=== PATIENT | male | born 1960 | race American Indian/Alaskan Native ===

== ENCOUNTER 2019-09-22 11:07 | Emergency (ER) | payer BC ==
--- NOTE | 2019-09-22 12:28 | Event Note ---
ED Screening Note Date of service: 09/22/19 Time: 12:25 ED Screening Note: 59 y o m with hx of asthma presents with sob states eds not working This initial assessment/diagnostic orders/clinical plan/treatment(s) is/are subject to change based on patients health status, clinical progression and re- assessment by fellow clinical providers in the ED. Further treatment and workup at subsequent clinical providers discretion. Patient/guardian urged not to elope from the ED as their condition may be serious if not clinically assessed and managed. Initial orders include: cxr
[2019-09-22] MEDS ORDERED: ALBUTEROL 2.5 MG/3 ML NEBU IH ONE (13:59)
[2019-09-22] MEDS ORDERED: methylPREDNISolone Sod Succinate 125 MG/2 ML INJ IV ONE (13:59)
[2019-09-22] MEDS ORDERED: MAGNESIUM SULFATE 2 GM/50 ML BAG IV ONE (13:59)
--- NOTE | 2019-09-22 14:00 | Emergency Department Report ---
Minor Respiratory - HPI Chief Complaint: Dyspnea/Respdistress Stated Complaint: SOB Time Seen by Provider: 09/22/19 13:59 Duration: 5 Days Pain Location: Chest Severity: moderate Minor Respiratory: Yes Able to Tolerate Fluids, Yes Cough, No Rhinorrhea, No Sore Throat, No Ear Pain, No Sick Contacts, No Hemoptysis, No Chest Pain, No Shortness of Breath, No Fever Other History: Patient is a 59-year-old -[place] male who comes to the ER with asthma exacerbation. He states that he has had continuous wheezing for about the last week. He did see his primary care last week and started him on pro-air, nebulizer treatments, Singulair and azithromycin. However, he does not feel like he is getting any better. He has no fever but does endorse chills. ED Review of Systems ROS: Stated complaint: SOB Other details as noted in HPI Comment: All other systems reviewed and negative ED Past Medical Hx - Past Medical History Previous Medical History?: Yes Hx Asthma: Yes - Surgical History Past Surgical History?: No - Family History Family history: no significant - Social History Smoking Status: Never Smoker Substance Use Type: None - Medications Home Medications: Home Medications Medication Instructions Recorded Confirmed Last Taken Type predniSONE [Deltasone] 20 mg PO DAILY #5 tablet 09/22/19 Unknown Rx Minor Respiratory Exam - Exam General: Vital signs noted. No distress. Alert and acting appropriately. HEENT: Yes Moist Mucous Membranes, No Pharyngeal Erythema, No Pharyngeal Exudate s, No Rhinorrhea, No Conjuctival Injection, No Frontal Tenderness, No Maxillary Tenderness Ear: Neither TM Bulge, Neither TM Erythema, Neither EAC Pain, Neither EAC Discharge Neck: Yes Supple, No Adenopathy Lungs: Yes Good Air Exchange, Yes Wheezes, Yes Cough, No Ronchi, No Stridor, No Labored Respirations, No Retractions, No Use of Accessory Muscles, No Other Abnormal Lung Sounds Heart: Yes Regular, No Murmur Abdomen: Yes Normal Bowel Sounds, No Tenderness, No Peritoneal Signs Skin: No Rash, No Edema Neurologic: Alert and oriented, no deficits. Musculoskeletal: Unremarkable. ED Course Vital Signs 09/22/19 12:24 Temperature 98 F Pulse Rate 89 Respiratory 18 Rate Blood Pressure 152/89 O2 Sat by Pulse 99 Oximetry ED Medical Decision Making - Radiology Data Radiology results: report reviewed, image reviewed NAP - Medical Decision Making XRAY NEG NO FEVER NO TACHYCARDIA NO HYPOTENSION MEDICATED WITH NS/SOLUMEDROL/DUONEB/AZITHROM IV AND MG DC HOME WITH DC POC AND PCP FOLLOW UP IN 48 H VSS NAD ON EXAM Vital Signs 09/22/19 12:24 Temperature 98 F Pulse Rate 89 Respiratory 18 Rate Blood Pressure 152/89 O2 Sat by Pulse 99 Oximetry - Differential Diagnosis RO PNA/URTI Critical care attestation.: If time is entered above; I have spent that time in minutes in the direct care of this critically ill patient, excluding procedure time. ED Disposition Clinical Impression: Asthma exacerbation Disposition: DC-01 TO HOME OR SELFCARE Is pt being admited?: No Does the pt Need Aspirin: No Condition: Stable Instructions: Asthma (ED) Additional Instructions: continue home nebs proair singulair azithromycin STOP YOUR CURRENT PREDNISONE AND TAKE DOSE I'VE GIVEN YOU TODAY FOLLOW UP WITH PCP IN 8 H TO BE SURE YOU ARE GETTING BETTER STAY WELL HYDRATED WITH WATER Prescriptions: predniSONE [Deltasone] 20 mg PO DAILY #5 tablet Referrals: [facility] [Other] - 3-5 Days Time of Disposition: 14:27
[2019-09-22] MEDS ORDERED: SODIUM CHLORIDE 0.9% 1000 ML 1,000 ML IV ONE (14:01)
[2019-09-22] MEDS ORDERED: cefTRIAXone/NS 1 GM/50 ML 1 GM/50 ML BAG IV ONE (14:27)
--- NOTE | 2019-09-22 14:29 | XRay Report ---
CHEST 2 VIEWS INDICATION: sob. COMPARISON: 08/04/2015. FINDINGS: Support devices: None. Heart: Within normal limits. Lungs/Pleura: No acute air space or interstitial disease. No significant pleural effusion. IMPRESSION: No acute findings. Signer Name: Miguel Angel Lassiter MD Signed: 09/22/2019 2:24 PM Workstation Name: [id number]
[2019-09-22 17:06] VITALS: BP 158/88
== END 2019-09-22 17:08 | disposition home or self-care (01) ==
LOC: ED 11:07
DX: J45.901 Unspecified asthma with (acute) exacerbation (principal); Z79.899 Other long term (current) drug therapy
CPT/HCPCS: 71046; 94640; 96365; 96368; 96375; 99283; J0696; J2930; J3475; J7030; 99282

== ENCOUNTER 2019-09-30 22:58 | Emergency (ER) | payer BC ==
[2019-09-30 23:13] VITALS: BP 145/86
[2019-09-30] MEDS ORDERED: IPRATROPIUM 0.02% NEBU 2.5 ML IH ONE (23:31)
[2019-09-30] MEDS ORDERED: ALBUTEROL 2.5 MG/3 ML NEBU IH ONE (23:31)
[2019-10-01] MEDS ORDERED: IPRATROPIUM/ALBUTEROL SULFATE 3 ML AMPUL.NEB IH ONE (00:19)
[2019-10-01] MEDS ORDERED: MAGNESIUM SULFATE 2 GM/50 ML BAG IV ONE (00:19)
[2019-10-01] MEDS ORDERED: ALBUTEROL 2.5 MG/3 ML NEBU IH ONE (00:19)
[2019-10-01] MEDS ORDERED: methylPREDNISolone Sod Succinate 125 MG/2 ML INJ IV ONE (00:20)
[2019-10-01] MEDS ORDERED: SODIUM CHLORIDE 0.9% 1000 ML 1,000 ML IV ONE (00:20)
[2019-10-01 01:17] LABS: Hematocrit 45.8 % (35.5-45.6); Hemoglobin 15.2 gm/dl (11.8-15.2); Mean Corpuscular HGB Conc 33 % (32-34); Mean Corpuscular Volume 86 fl (84-94); Platelet Count 148 K/mm3 (140-440); Red Blood Count 5.36 M/mm3 (3.65-5.03); Red Cell Distribution Width 14.7 % (13.2-15.2)
[2019-10-01 01:47] LABS: Alanine Aminotransferase 38 units/L (7-56); Albumin 4.1 g/dL (3.9-5); BUN/Creatinine Ratio 18; Blood Urea Nitrogen 21 mg/dL (9-20); Calcium 9.5 mg/dL (8.4-10.2); Hemolysis Index 16
--- NOTE | 2019-10-01 03:38 | Emergency Department Report ---
- General Chief Complaint: Adult Asthma Stated Complaint: SOB Source: patient Mode of arrival: Ambulatory Limitations: No Limitations - History of Present Illness Initial Comments: Patient is a 59-year-old -[place] male with a history of asthma who presented to the ED with complaint of acute onset persistent nasal and sinus congestion, dry cough with wheezing and shortness of breath for the last 1 week worse in the last 2 days. Patient states that he has been using his albuterol nebulizer and inhalers as needed, and more frequently in the last 2 days. Patient denies fever, chills, nausea, vomiting, chest pain, dizziness, syncope, abdominal pain, sore throat, dysuria, urinary frequency and urgency, diarrhea, headache or change in vision. MD Complaint: cough, rhinorrhea, nasal congestion, other (shortness of breath) -: Sudden, week(s) (1) Severity: moderate Severity scale (0 -10): 6 Quality: dull Consistency: intermittent Improves With: nothing Worsens With: nothing Context: sick contacts Associated Symptoms: denies other symptoms, rhinorrhea, nasal congestion, cough, shortness of breath. denies: fever, myalgias, diaphoresis, headache, nausea, vomiting, diarrhea, confusion, right sweats, epistaxis Treatments Prior to Arrival: other (albuterol nebulizers) - Related Data Previous Rx's Medication Instructions Recorded Last Taken Type predniSONE [Deltasone] 20 mg PO DAILY #5 tablet 09/22/19 Unknown Rx Amoxicillin/Potassium Clav 1 each PO Q12H #20 tablet 10/01/19 Unknown Rx [Augmentin 875-125 Tablet] Benzonatate [Tessalon Perles] 100 mg PO Q8HR #30 capsule 10/01/19 Unknown Rx Prednisone [predniSONE 10 mg 10 mg PO .TAPER #21 tab.ds.pk 10/01/19 Unknown Rx (6-Day Pack, 21 Tabs)] Allergies Allergy/AdvReac Type Severity Reaction Status Date / Time No Known Allergies Allergy Verified 08/04/15 05:41 ED Review of Systems ROS: Stated complaint: SOB Other details as noted in HPI Constitutional: denies: chills, fever Eyes: denies: eye pain, eye discharge, vision change ENT: congestion. denies: ear pain, throat pain Respiratory: cough, shortness of breath, wheezing Cardiovascular: denies: chest pain, palpitations Endocrine: no symptoms reported Gastrointestinal: denies: abdominal pain, nausea, diarrhea Genitourinary: denies: urgency, dysuria Musculoskeletal: denies: back pain, joint swelling, arthralgia Skin: denies: rash, lesions Neurological: denies: headache, weakness, paresthesias Psychiatric: denies: anxiety, depression Hematological/Lymphatic: denies: easy bleeding, easy bruising ED Past Medical Hx - Past Medical History Previous Medical History?: Yes Hx Asthma: Yes - Surgical History Past Surgical History?: No - Social History Smoking Status: Never Smoker Substance Use Type: None, Marijuana - Medications Home Medications: Home Medications Medication Instructions Recorded Confirmed Last Taken Type predniSONE [Deltasone] 20 mg PO DAILY #5 tablet 09/22/19 Unknown Rx Amoxicillin/Potassium Clav 1 each PO Q12H #20 tablet 10/01/19 Unknown Rx [Augmentin 875-125 Tablet] Benzonatate [Tessalon Perles] 100 mg PO Q8HR #30 capsule 10/01/19 Unknown Rx Prednisone [predniSONE 10 mg 10 mg PO .TAPER #21 tab.ds.pk 10/01/19 Unknown Rx (6-Day Pack, 21 Tabs)] ED Physical Exam - General Limitations: No Limitations General appearance: alert, in no apparent distress - Head Head exam: Present: atraumatic, normocephalic, normal inspection - Eye Eye exam: Present: normal appearance, PERRL, EOMI Pupils: Present: normal accommodation - ENT ENT exam: Present: normal orophraynx, mucous membranes moist, TM's normal bilaterally, normal external ear exam, other (Grossly congested nasal passages) - Neck Neck exam: Present: normal inspection, full ROM. Absent: tenderness, meningismus - Respiratory Respiratory exam: Present: wheezes (Moderately because wheezes throughout). Absent: respiratory distress, rales, rhonchi, chest wall tenderness, accessory muscle use, decreased breath sounds - Cardiovascular Cardiovascular Exam: Present: regular rate, normal rhythm, normal heart sounds. Absent: systolic murmur, diastolic murmur, rubs, gallop - GI/Abdominal GI/Abdominal exam: Present: soft, normal bowel sounds. Absent: distended, tenderness, guarding, hyperactive bowel sounds - Extremities Exam Extremities exam: Present: normal inspection, full ROM, normal capillary refill - Back Exam Back exam: Present: normal inspection, full ROM. Absent: tenderness, CVA tenderness (L), muscle spasm, paraspinal tenderness - Neurological Exam Neurological exam: Present: alert, oriented X3, CN II-XII intact, normal gait, reflexes normal - Psychiatric Psychiatric exam: Present: normal affect, normal mood - Skin Skin exam: Present: warm, dry, intact, normal color. Absent: rash ED Course Vital Signs 09/30/19 09/30/19 23:11 23:40 Temperature 98.6 F Pulse Rate 97 H Pulse Rate [ 100 H Bilateral Throughout] Respiratory 20 Rate Respiratory 20 Rate [Bilateral Throughout] Blood Pressure 145/86 O2 Sat by Pulse 90 Oximetry ED Medical Decision Making - Lab Data Result diagrams: 10/01/19 00:48 10/01/19 00:48 - Radiology Data Radiology results: report reviewed, image reviewed Chest x-ray shows no acute cardiopulmonary abnormalities or pneumonitis. - Medical Decision Making This is a 59-year-old male with a history of asthma who presented to the ED with persistent shortness of breath, wheezing, dry cough, nasal and sinus congestion. In the ED, patient is alert and oriented x3 and is not in distress. Patient was treated in the ED with DuoNeb, albuterol nebulizers and also given Solu- Medrol injections. Patient was also treated with magnesium 2 mg IV x1 and observed in the ED. Lab test results were reviewed and are all nonactionable. Chest x-ray shows no acute cardiopulmonary abnormalities or pneumonitis. On reevaluation, patient's wheezing resolved patient felt better after the nebulizer treatments. Patient was discharged home on medications and advised to follow-up with his primary care physician in 5 to 7 days for reevaluation or return to the ED immediately if symptoms get worse. - Differential Diagnosis asthma; pneumonia; bronchitis; sinusitis; URI Critical care attestation.: If time is entered above; I have spent that time in minutes in the direct care of this critically ill patient, excluding procedure time. ED Disposition Clinical Impression: Acute bronchitis with asthma with acute exacerbation, Acute upper respiratory infection Acute asthma exacerbation Qualifiers: Asthma severity: unspecified severity Asthma persistence: intermittent Qualified Code(s): J45.21 - Mild intermittent asthma with (acute) exacerbation Disposition: - TO HOME OR SELFCARE Is pt being admited?: No Does the pt Need Aspirin: No Condition: Stable Instructions: Acute Bronchitis (ED), Asthma (ED), Upper Respiratory Infection (ED) Additional Instructions: Take medication with food, drink plenty of fluids and follow-up with your primary care physician in 5 to 7 days for reevaluation. Return to the ED immediately if symptoms get worse. Prescriptions: Amoxicillin/Potassium Clav [Augmentin 875-125 Tablet] 1 each PO Q12H #20 tablet Prednisone [predniSONE 10 mg (6-Day Pack, 21 Tabs)] 10 mg PO .TAPER #21 tab.ds.pk Benzonatate [Tessalon Perles] 100 mg PO Q8HR #30 capsule Referrals: HAYLEY BASILIO MD [Staff Physician] - 3-5 Days Forms: Work/School Release Form(ED) Time of Disposition: 03:39 Print Language: LUXEMBOURGISH
[2019-10-01 05:01] LABS: Anisocytosis 1+; Band Neutrophils # (Manual) 0.1 K/mm3; Basophils % (Manual) 0 % (0.0-1.8); Total Cells Counted 100
[2019-10-01 05:02] LABS: Platelet Estimate Consistent w Auto
== END 2019-10-01 04:00 | disposition home or self-care (01) ==
LOC: ED 22:58
DX: J45.901 Unspecified asthma with (acute) exacerbation (principal); J20.9 Acute bronchitis, unspecified; J06.9 Acute upper respiratory infection, unspecified; F12.10 Cannabis abuse, uncomplicated
CPT/HCPCS: 36415; 80053; 84484; 85007; 85025; 94640; 96365; 96375; 99284; J2930; J3475; J7030; 94644

== ENCOUNTER 2019-12-23 05:00 | Emergency (ER) | payer BC ==
--- NOTE | 2019-12-23 05:27 | Emergency Department Report ---
ED Shortness of Breath HPI - General Chief Complaint: Dyspnea/Respdistress Stated Complaint: SHORTNESS OF BREATH Time Seen by Provider: 12/23/19 05:19 Source: patient Mode of arrival: Ambulatory Limitations: No Limitations - History of Present Illness Initial Comments: 59-year-old -Citizen Of [place] male presents to the emergency room for shortness of breath x2 days. Patient denies any other symptoms. Patient has a past medical history of asthma. Patient also reports he has bilateral feet swelling for weeks. Patient complains of coughing a lot and wheezing. Patient denies any fever no nasal congestion or runny eyes. Patient states his been using it is Margaret his nebulizer and took 10 mg of prednisone prior to arrival. Patient reports is not been able to see his primary care provider Dr. Deras. Patient reports that he has a prescription for Lasix but did not take it. This was prescribed by his mineral surveyor. MD Complaint: shortness of breath Onset/Timin -: days(s) Consistency: intermittent Improves With: nothing Worsens With: lying flat Known History Of: asthma Associated Symptoms: cough, other (Lower leg swelling) Treatments Prior to Arrival: other (Albuterol treatment and prednisone) - Related Data Home Oxygen Therapy: No Previous Rx's Medication Instructions Recorded Last Taken Type predniSONE [Deltasone] 20 mg PO DAILY #5 tablet 09/22/19 Unknown Rx Amoxicillin/Potassium Clav 1 each PO Q12H #20 tablet 10/01/19 Unknown Rx [Augmentin 875-125 Tablet] Benzonatate [Tessalon Perles] 100 mg PO Q8HR #30 capsule 10/01/19 Unknown Rx Prednisone [predniSONE 10 mg 10 mg PO .TAPER #21 tab.ds.pk 10/01/19 Unknown Rx (6-Day Pack, 21 Tabs)] predniSONE [Deltasone] 20 mg PO QDAY 5 Days #5 tab 12/23/19 Unknown Rx Allergies Allergy/AdvReac Type Severity Reaction Status Date / Time No Known Allergies Allergy Verified 08/04/15 05:41 ED Review of Systems ROS: Stated complaint: SHORTNESS OF BREATH Other details as noted in HPI Comment: All other systems reviewed and negative ED Past Medical Hx - Past Medical History Previous Medical History?: Yes Hx Asthma: Yes - Surgical History Past Surgical History?: No - Social History Smoking Status: Never Smoker Substance Use Type: None - Medications Home Medications: Home Medications Medication Instructions Recorded Confirmed Last Taken Type predniSONE [Deltasone] 20 mg PO DAILY #5 tablet 09/22/19 Unknown Rx Amoxicillin/Potassium Clav 1 each PO Q12H #20 tablet 10/01/19 Unknown Rx [Augmentin 875-125 Tablet] Benzonatate [Tessalon Perles] 100 mg PO Q8HR #30 capsule 10/01/19 Unknown Rx Prednisone [predniSONE 10 mg 10 mg PO .TAPER #21 tab.ds.pk 10/01/19 Unknown Rx (6-Day Pack, 21 Tabs)] predniSONE [Deltasone] 20 mg PO QDAY 5 Days #5 tab 12/23/19 Unknown Rx ED Physical Exam - General Limitations: No Limitations General appearance: alert, in no apparent distress - Head Head exam: Present: atraumatic, normocephalic - ENT ENT exam: Present: mucous membranes moist - Respiratory Respiratory exam: Present: wheezes, prolonged expiratory - Cardiovascular Cardiovascular Exam: Present: regular rate, normal rhythm. Absent: systolic murmur, diastolic murmur, rubs, gallop - GI/Abdominal GI/Abdominal exam: Present: soft. Absent: distended, tenderness - Extremities Exam Extremities exam: Present: full ROM, pedal edema - Back Exam Back exam: Present: normal inspection - Neurological Exam Neurological exam: Present: alert, oriented X3 - Psychiatric Psychiatric exam: Present: normal affect, normal mood - Skin Skin exam: Present: warm, dry, intact, normal color. Absent: rash ED Course Vital Signs 12/23/19 12/23/19 05:03 06:10 Temperature 98.4 F Pulse Rate 77 Pulse Rate [ 80 Bilateral] Respiratory 18 Rate Respiratory 20 Rate [Bilateral ] Blood Pressure 140/99 O2 Sat by Pulse 95 Oximetry - Reevaluation(s) Reevaluation #1: 12/23/19 07:09 Patient continues to wheeze. Patient be given another nebulizer treatment of albuterol. ED Medical Decision Making - Radiology Data Radiology results: report reviewed Print Report Referring Physician:MIKE TURCIOSPatient Name:CAROLINE FELICIANOPatient ID:[id number] of :[id number]:MaleAccession:[id number] Date:[id number] Status:Finalized Findings [facility] [address] [place] [address] XRay Report Signed Patient: CAROLINE FELICIANO MR#: [id number] : 1960 Acct:[id number] Age/Sex: 59 / M ADM Date: 12/23/19 Loc: ED Attending Dr: Ordering Physician: QUIN HOOKER Date of Service: 12/23/19 Procedure(s): XR chest routine 2V Accession Number(s): [id number] cc: QUIN HOOKER Fluoro Time In Minutes: CHEST 2 VIEWS, 12/23/2019 4:37 AM INDICATION: Cough. Shortness of breath. COMPARISON: Chest radiograph, 09/22/2019 FINDINGS: Support devices: None. Heart: The cardiac silhouette is normal in size. Lungs/pleura: The lungs are clear of focal airspace consolidation or significant pleural effusion. Additional findings: Evaluation of bony structures demonstrate moderate bony degenerative changes of the thoracic spine. IMPRESSION: 1. No evidence of acute cardiopulmonary process. Signer Name: Diamante Hazel MD Signed: 12/23/2019 5:41 AM Workstation Name: [id number] Transcribed By: EB Dictated By: Diamante Hazel MD Electronically Authenticated By: Diamante Hazel MD Signed Date/Time: 12/23/19 0541 - Medical Decision Making 59-year-old -Citizen Of [place] male presents to the emergency room for shortness of breath x2 days. Patient denies any other symptoms. Patient has a past medical history of asthma. Patient also reports he has bilateral feet swelling for weeks. Patient complains of coughing a lot and wheezing. Patient denies any fever no nasal congestion or runny eyes. Patient states his been using it is Margaret his nebulizer and took 10 mg of prednisone prior to arrival. Patient reports is not been able to see his primary care provider Dr. Deras. Patient reports that he has a prescription for Lasix but did not take it. This was prescribed by his mineral surveyor. Checks x-ray has been ordered. IV insertion normal saline, magnesium 2 mg IV, albuterol inhalation 5 mg Atrovent 1 mg and prednisone 50 mg p.o. - Differential Diagnosis CHF, asthma exacerbation, URI Critical care attestation.: If time is entered above; I have spent that time in minutes in the direct care of this critically ill patient, excluding procedure time. ED Disposition Clinical Impression: Dyspnea Qualifiers: Dyspnea type: unspecified Qualified Code(s): R06.00 - Dyspnea, unspecified Asthma exacerbation Qualifiers: Asthma severity: mild Asthma persistence: intermittent Qualified Code(s): J45.21 - Mild intermittent asthma with (acute) exacerbation Disposition: TO HOME OR SELFCARE Is pt being admited?: No Does the pt Need Aspirin: No Condition: Stable Additional Instructions: Complete prednisone as prescribed. Continue with nebulizer treatments at home. Prescriptions: predniSONE [Deltasone] 20 mg PO QDAY 5 Days #5 tab Referrals: PRIMARY CARE,MD [Primary Care Provider] - 3-5 Days Your, primary care provider. [Other] - 3-5 Days
[2019-12-23] MEDS ORDERED: predniSONE 50 MG TAB PO ONE (05:29)
[2019-12-23] MEDS ORDERED: IPRATROPIUM 0.02% NEBU 2.5 ML IH ONE (05:30)
[2019-12-23] MEDS ORDERED: ALBUTEROL 2.5 MG/3 ML NEBU IH ONE ×2 (05:30→07:06)
[2019-12-23] MEDS ORDERED: MAGNESIUM SULFATE 2 GM/50 ML BAG IV ONE (05:33)
[2019-12-23] MEDS ORDERED: SODIUM CHLORIDE 0.9% 1000 ML 1,000 ML IV ONE (05:33)
--- NOTE | 2019-12-23 05:46 | XRay Report ---
CHEST 2 VIEWS, 12/23/2019 4:37 AM INDICATION: Cough. Shortness of breath. COMPARISON: Chest radiograph, 09/22/2019 FINDINGS: Support devices: None. Heart: The cardiac silhouette is normal in size. Lungs/pleura: The lungs are clear of focal airspace consolidation or significant pleural effusion. Additional findings: Evaluation of bony structures demonstrate moderate bony degenerative changes of the thoracic spine. IMPRESSION: 1. No evidence of acute cardiopulmonary process. Signer Name: Diamante Hazel MD Signed: 12/23/2019 5:41 AM Workstation Name: [id number]
[2019-12-23 09:59] VITALS: BP 148/90
== END 2019-12-23 09:58 | disposition home or self-care (01) ==
LOC: ED 05:00
DX: J45.901 Unspecified asthma with (acute) exacerbation (principal)
CPT/HCPCS: 71046; 94640; 96365; 99284; J3475; J7030; J7512; 94644

== ENCOUNTER 2020-09-03 22:40 | Emergency (ER) | payer BC ==
--- NOTE | 2020-09-03 23:23 | Emergency Department Report ---
Blank Doc - Documentation Documentation: 60-year-old male that presents with abdominal pain with bright red blood in [facility]. Patient dated the started today. 1- This initial assessment/diagnostic orders/clinical plan/ treatment(s) is/are subject to change based on pt's health status, clinical progression and re-asses sment by fellow clinical providers in the ED. Further treatment and workup at subsequent clinical provers discretion. Patient/guardians urged not to elope from ED as their condition may be serious if not clinically assessed and managed. 2-labs 3--UA
[2020-09-03 23:54] LABS: Basophils % (Auto) 0.6 % (0.0-1.8); Eosinophils # (Auto) 0.4 K/mm3 (0.0-0.4); Eosinophils % (Auto) 9.4 % (0.0-4.3); Hematocrit 47.1 % (35.5-45.6); Hemoglobin 15.8 gm/dl (11.8-15.2); Lymphocytes # (Auto) 1.3 K/mm3 (1.2-5.4); Lymphocytes % (Auto) 27.8 % (13.4-35.0); Mean Corpuscular HGB Conc 34 % (32-34); Mean Corpuscular Volume 85 fl (84-94); Monocytes # (Auto) 0.5 K/mm3 (0.0-0.8); Platelet Count 155 K/mm3 (140-440); Red Blood Count 5.54 M/mm3 (3.65-5.03); Red Cell Distribution Width 13.4 % (13.2-15.2)
[2020-09-04 00:09] LABS: Alanine Aminotransferase 34 units/L (7-56); Albumin 4.6 g/dL (3.9-5); BUN/Creatinine Ratio 16; Blood Urea Nitrogen 16 mg/dL (9-20); Calcium 9.4 mg/dL (8.4-10.2); Hemolysis Index 9
--- NOTE | 2020-09-04 01:55 | Emergency Department Report ---
HPI - HPI HPI: Room 40 The patient is a 60-year-old male present with a chief complaint of blood in stool. Patient presents the emergency department secondary to noticing blood in his stool today. Patient states he developed intermittent diffuse abdominal pain last night. The patient attributes his symptoms to his believe that his employer bugged his home in place a high-frequency radial booster around his windowsill. The patient states he spoke with the police and the FBI and they told him to take care of it himself. The patient initially states he had a picture of the device but when he showed me his phone it was just a video of him waving a device around the windowsill. The patient then states he did not take a picture of the device. Patient denies having a psychiatric history. Patient denies suicidal or homicidal ideation. Patient denies auditory or visual hallucinations. The patient denies headache. <ROBERT JERNIGNA - Last Filed: 09/04/20 06:01> <CHUYITA DSOUZA - Last Filed: 09/04/20 10:04> - General Chief Complaint: GI Bleed Time Seen by Provider: 09/03/20 23:22 ED Past Medical Hx - Past Medical History Previous Medical History?: Yes Hx Asthma: Yes - Surgical History Past Surgical History?: No - Family History Family history: no significant - Social History Smoking Status: Never Smoker Substance Use Type: None (Denies illicit drug use) <ROBERT JERNIGAN - Last Filed: 09/04/20 06:01> <CHUYITA DSOUZA - Last Filed: 09/04/20 10:04> - Medications Home Medications: Home Medications Medication Instructions Recorded Confirmed Last Taken Type predniSONE [Deltasone] 20 mg PO DAILY #5 tablet 09/22/19 Unknown Rx Amoxicillin/Potassium Clav 1 each PO Q12H #20 tablet 10/01/19 Unknown Rx [Augmentin 875-125 Tablet] Benzonatate [Tessalon Perles] 100 mg PO Q8HR #30 capsule 10/01/19 Unknown Rx Prednisone [predniSONE 10 mg 10 mg PO .TAPER #21 tab.ds.pk 10/01/19 Unknown Rx (6-Day Pack, 21 Tabs)] predniSONE [Deltasone] 20 mg PO QDAY 5 Days #5 tab 12/23/19 Unknown Rx ED Review of Systems ROS: Stated complaint: BLOODY STOOL Other details as noted in HPI Constitutional: no symptoms reported Eyes: denies: eye pain ENT: denies: throat pain Respiratory: no symptoms reported Cardiovascular: denies: chest pain Endocrine: no symptoms reported Gastrointestinal: abdominal pain, hematochezia Genitourinary: denies: dysuria Musculoskeletal: denies: back pain Neurological: denies: headache Psychiatric: other (Delusions) <ROBERT JERNIGAN Jossie - Last Filed: 09/04/20 06:01> ROS: Stated complaint: BLOODY STOOL Other details as noted in HPI <CHUYITA DSOUZA Mele - Last Filed: 09/04/20 10:04> Physical Exam - Physical Exam Physical Exam: GENERAL: The patient is well-developed well-nourished male lying on stretcher not appearing to be in acute distress. [] HEENT: Normocephalic. Atraumatic. Extraocular motions are intact. Patient has moist mucous membranes. NECK: Supple. No meningitic signs are noted. There is no nuchal rigidity CHEST/LUNGS: Clear to auscultation. There is no respiratory distress noted. HEART/CARDIOVASCULAR: Regular. There is no tachycardia. There is no gallop rub or murmur. ABDOMEN: Abdomen is soft, nontender. Patient has normal bowel sounds. There is no abdominal distention. SKIN: There is no rash. There is no edema. There is no diaphoresis. NEURO: The patient is awake, alert, and oriented. The patient is cooperative. The patient has no focal neurologic deficits. The patient has normal speech. Cranial nerves II through XII grossly intact. GCS 15 MUSCULOSKELETAL: There is no evidence of acute injury. <ROBERT JERNIGAN Jossie - Last Filed: 09/04/20 06:01> - Physical Exam Vital Signs: Vital Signs 09/03/20 09/04/20 09/04/20 23:26 00:24 01:46 Temperature 99.2 F Pulse Rate 90 50 L Respiratory 17 17 18 Rate Blood Pressure 147/95 Blood Pressure 136/78 [Right] O2 Sat by Pulse 96 99 Oximetry 09/04/20 09/04/20 09/04/20 02:37 03:00 03:30 Temperature Pulse Rate 76 57 L 52 L Respiratory 16 16 Rate Blood Pressure 117/72 116/75 121/77 Blood Pressure [Right] O2 Sat by Pulse 97 98 99 Oximetry 09/04/20 09/04/20 09/04/20 04:30 05:30 06:30 Temperature Pulse Rate 47 L 48 L 60 Respiratory 15 16 14 Rate Blood Pressure 119/73 117/73 119/73 Blood Pressure [Right] O2 Sat by Pulse 100 99 100 Oximetry 09/04/20 09/04/20 09/04/20 07:00 07:30 08:00 Temperature Pulse Rate 51 L 46 L 51 L Respiratory 19 15 14 Rate Blood Pressure 119/73 126/71 126/71 Blood Pressure [Right] O2 Sat by Pulse 97 99 99 Oximetry 09/04/20 08:30 Temperature Pulse Rate 46 L Respiratory 15 Rate Blood Pressure 126/71 Blood Pressure [Right] O2 Sat by Pulse 99 Oximetry <CHUYITA DSOUZA Last Filed: 09/04/20 10:04> ED Course Vital Signs 09/03/20 09/04/20 09/04/20 23:26 00:24 01:46 Temperature 99.2 F Pulse Rate 90 50 L Respiratory 17 17 18 Rate Blood Pressure 147/95 Blood Pressure 136/78 [Right] O2 Sat by Pulse 96 99 Oximetry 09/04/20 09/04/20 09/04/20 02:37 03:00 03:30 Temperature Pulse Rate 76 57 L 52 L Respiratory 16 16 Rate Blood Pressure 117/72 116/75 121/77 Blood Pressure [Right] O2 Sat by Pulse 97 98 99 Oximetry 09/04/20 09/04/20 09/04/20 04:30 05:30 06:30 Temperature Pulse Rate 47 L 48 L 60 Respiratory 15 16 14 Rate Blood Pressure 119/73 117/73 119/73 Blood Pressure [Right] O2 Sat by Pulse 100 99 100 Oximetry 09/04/20 09/04/20 09/04/20 07:00 07:30 08:00 Temperature Pulse Rate 51 L 46 L 51 L Respiratory 19 15 14 Rate Blood Pressure 119/73 126/71 126/71 Blood Pressure [Right] O2 Sat by Pulse 97 99 99 Oximetry 09/04/20 08:30 Temperature Pulse Rate 46 L Respiratory 15 Rate Blood Pressure 126/71 Blood Pressure [Right] O2 Sat by Pulse 99 Oximetry <CHUYITA DSOUZA Filed: 09/04/20 10:04> ED Medical Decision Making - Lab Data Result diagrams: 09/03/20 23:30 09/03/20 23:30 - Radiology Data Radiology results: report reviewed (CT head, CT abdomen pelvis), image reviewed (CT head, CT abdomen pelvis) [address] [address] Cat Scan Report Signed Patient: CAROLINE FELICIANO MR#: Preethi [id number] : 1960 Acct:[id number] Age/Sex: 60 / M ADM Date: 09/03/20 Loc: ED Attending Dr: Ordering Physician: ROBERT JERNIGAN MD Date of Service: 09/04/20 Procedure(s): CT head/brain wo con Accession Number(s): [id number] cc: ROBERT JERNIGAN MD CT HEAD WITHOUT CONTRAST INDICATION / CLINICAL INFORMATION: New onset delusions. TECHNIQUE: All CT scans at this location are performed using CT dose reduction for ALARA by means of automated exposure control. COMPARISON: None available. FINDINGS: HEMORRHAGE: None. EXTRA-AXIAL SPACES: Normal in size and morphology for the patient's age. VENTRICULAR SYSTEM: Normal in size and morphology for the patient's age. CEREBRAL PARENCHYMA: No significant abnormality. No acute territorial infarct. MIDLINE SHIFT / HERNIATION: None. CEREBELLUM / BRAINSTEM: No significant abnormality. ORBITS: Normal as visualized. SOFT TISSUES: No significant abnormality. SKULL: No significant abnormality. PARANASAL SINUSES / MASTOID AIR CELLS: Normal as visualized. ADDITIONAL FINDINGS: None. IMPRESSION: 1. No acute intracranial abnormality. Signer Name: Donta Lopes MD Signed: 09/04/2020 2:55 AM Workstation Name: [id number] Transcribed By: DT Dictated By: Yan Lopes MD Electronically Authenticated By: Yan Lopes MD Signed Date/Time: 09/04/20 025 DD/ 025 TD/TT: [address] [address] Cat Scan Report Signed Patient: CAROLINE FELICIANO MR#: [id number] : 1960 Acct:[id number] Age/Sex: 60 / M ADM Date: 09/03/20 Loc: ED Attending Dr: Ordering Physician: ROBERT JERNIGAN MD Date of Service: 09/04/20 Procedure(s): CT abdomen pelvis w con Accession Number(s): [id number] cc: ROBERT JERNIGAN MD CT ABDOMEN AND PELVIS WITH CONTRAST INDICATION / CLINICAL INFORMATION: Blood in stool, intermittent diffuse abdominal pain. TECHNIQUE: Axial CT images were obtained through the abdomen and pelvis after 100 mL Omnipaque [address] scans at this location are performed using CT dose reduction for ALARA by means of automated exposure control. COMPARISON: None available. FINDINGS: LOWER CHEST: No significant abnormality. LIVER: No significant abnor mality. GALLBLADDER: No significant abnormality. BILE DUCTS: No significant abnormality. PANCREAS: No significant abnormality. SPLEEN: No significant abnormality. ADRENALS: No significant abnormality. RIGHT KIDNEY / URETER: No significant abnormality. LEFT KIDNEY / URETER: Small simple appearing cysts. Small nonobstructing stone in the upper pole. No significant abnormality. STOMACH / SMALL BOWEL: No significant abnormality. COLON: No significant abnormality. APPENDIX: No significant abnormality. PERITONEUM: No free fluid. No free air. No fluid collection. LYMPH NODES: No significant adenopathy. AORTA / ARTERIES: No significant abnormality. IVC / VEINS: No significant abnormality. URINARY BLADDER: No significant abnormality. REPRODUCTIVE ORGANS: No significant abnormality. ADDITIONAL FINDINGS: None. SKELETAL SYSTEM: No significant abnormality. IMPRESSION: 1. No acute process in the abdomen or pelvis. 2. Small nonobstructing left intrarenal stone. No ureteral stone or hydronephrosis. Si gner Name: Donta Lopes MD Signed: 09/04/2020 2:57 AM Workstation Name: [id number] Transcribed By: DT Dictated By: aYn Lopes MD Electronically Authenticated By: Yan Lopes MD Signed Date/Time: 09/04/20 0257 DD/ 0255 TD/TT: - Differential Diagnosis Delusional disorder, hemorrhoids, colitis, <ROBERT JERNIGAN - Last Filed: 09/04/20 06:01> - Lab Data Result diagrams: 09/03/20 23:30 09/03/20 23:30 - Medical Decision Making As of 10 AM patient still awaiting psychiatric evaluation for possible delusions. Nurse informed me that patient wanted to go home. I spoke to patient he continues to deny suicidal ideation, homicidal ideation, or psychosis. He insists that the situation with his employee bugging his home is truthful and he has the evidence at home. Patient denies previous psychiatric diagnoses and is not interested in psychiatric consultation. Patient starts to organize he is cooperative. It is possible that patient is having delusions regarding his employer bugging his home however, he does not meet 1013 criteria and therefore will be discharged with GI follow-up as planned. <CHUYITA DSOUZA - Last Filed: 09/04/20 10:04> Critical care attestation.: If time is entered above; I have spent that time in minutes in the direct care of this critically ill patient, excluding procedure time. <ROBERT JERNIGAN - Last Filed: 09/04/20 06:01> Critical care attestation.: If time is entered above; I have spent that time in minutes in the direct care of this critically ill patient, excluding procedure time. <CHUYITA DSOUZA - Last Filed: 09/04/20 10:04> ED Disposition Is pt being admited?: No Does the pt Need Aspirin: No <ROBERT JERNIGAN - Last Filed: 09/04/20 06:01> Time of Disposition: 10:04 <CHUYITA DSOUZA - Last Filed: 09/04/20 10:04> Clinical Impression: Hematochezia Disposition: DC-01 TO HOME OR SELFCARE Condition: Stable Additional Instructions: Return to the emergency department should you develop worsening symptoms, inability to tolerate food or liquids, high fever or any other concerns Referrals: CHARLOTTE BSUH MD [Primary Care Provider] - 3-5 Days ASHLEE BRIONES MD [Staff Physician] - 3-5 Days (Dr. Briones is a case aide. Please follow-up with him for further evaluation) Forms: Accompanied Note
--- NOTE | 2020-09-04 02:59 | Cat Scan Report ---
CT HEAD WITHOUT CONTRAST INDICATION / CLINICAL INFORMATION: New onset delusions. TECHNIQUE: All CT scans at this location are performed using CT dose reduction for ALARA by means of automated exposure control. COMPARISON: None available. FINDINGS: HEMORRHAGE: None. EXTRA-AXIAL SPACES: Normal in size and morphology for the patient's age. VENTRICULAR SYSTEM: Normal in size and morphology for the patient's age. CEREBRAL PARENCHYMA: No significant abnormality. No acute territorial infarct. MIDLINE SHIFT / HERNIATION: None. CEREBELLUM / BRAINSTEM: No significant abnormality. ORBITS: Normal as visualized. SOFT TISSUES: No significant abnormality. SKULL: No significant abnormality. PARANASAL SINUSES / MASTOID AIR CELLS: Normal as visualized. ADDITIONAL FINDINGS: None. IMPRESSION: 1. No acute intracranial abnormality. Signer Name: Donta Lopes MD Signed: 09/04/2020 2:55 AM Workstation Name: [id number]
--- NOTE | 2020-09-04 03:02 | Cat Scan Report ---
CT ABDOMEN AND PELVIS WITH CONTRAST INDICATION / CLINICAL INFORMATION: Blood in stool, intermittent diffuse abdominal pain. TECHNIQUE: Axial CT images were obtained through the abdomen and pelvis after 100 mL Omnipaque [address] scans at this location are performed using CT dose reduction for ALARA by means of automated exposure control. COMPARISON: None available. FINDINGS: LOWER CHEST: No significant abnormality. LIVER: No significant abnormality. GALLBLADDER: No significant abnormality. BILE DUCTS: No significant abnormality. PANCREAS: No significant abnormality. SPLEEN: No significant abnormality. ADRENALS: No significant abnormality. RIGHT KIDNEY / URETER: No significant abnormality. LEFT KIDNEY / URETER: Small simple appearing cysts. Small nonobstructing stone in the upper pole. No significant abnormality. STOMACH / SMALL BOWEL: No significant abnormality. COLON: No significant abnormality. APPENDIX: No significant abnormality. PERITONEUM: No free fluid. No free air. No fluid collection. LYMPH NODES: No significant adenopathy. AORTA / ARTERIES: No significant abnormality. IVC / VEINS: No significant abnormality. URINARY BLADDER: No significant abnormality. REPRODUCTIVE ORGANS: No significant abnormality. ADDITIONAL FINDINGS: None. SKELETAL SYSTEM: No significant abnormality. IMPRESSION: 1. No acute process in the abdomen or pelvis. 2. Small nonobstructing left intrarenal stone. No ureteral stone or hydronephrosis. Signer Name: Donta Lopes MD Signed: 09/04/2020 2:57 AM Workstation Name: [id number]
[2020-09-04 03:45] LABS: Bilirubin,Urine NEG (Negative); Blood,Urine NEG (Negative); Color,Urine Yellow (Yellow); Mucus,Urine FEW /HPF; Protein,Urine <15 mg/dL mg/dL (Negative); Urobilinogen,Urine < 2.0 mg/dL (<2.0); WBC,Urine < 1.0 /HPF (0.0-6.0)
--- NOTE | 2020-09-04 08:59 | Consultation ---
History of Present Illness - Reason for Consult Consult date: 09/04/20 Reason for consult: MHE Requesting physician: ROBERT JERNIGAN - History of Present Psychiatric Illness Per ED Provider: The patient is a 60-year-old male present with a chief complaint of blood in stool. Patient presents the emergency department sec ondary to noticing blood in his stool today. Patient states he developed intermittent diffuse abdominal pain last night. The patient attributes his symptoms to his believe that his employer bugged his home in place a high- frequency radial booster around his windowsill. The patient states he spoke with the police and the FBI and they told him to take care of it himself. The patient initially states he had a picture of the device but when he showed me his phone it was just a video of him waving a device around the windowsill. The patient then states he did not take a picture of the device. Patient denies having a psychiatric history. Patient denies suicidal or homicidal ideation. Patient denies auditory or visual hallucinations. The patient denies headache. PSYCH HPI Patient describes a good and stable mood, denies being depressed or excessively nervous. Patient eats and sleeps well. Patient denies panic attacks, recurrent nightmares or flashbacks. Patient denies symptoms suggestive of OCD or PTSD. Patient denies hallucinations, paranoia, thought interference and no features suggestive of hypomania or vineet. Patiently completely denies suicidal or homicidal thoughts. PAST PSYCHIATRIC HISTORY Diagnoses: Suicide attempts or Self-harm behavior: Prior psychiatric hospitalizations: Substance Abuse history: Previous psychiatric medications tried: Outpatient treatment: PAST MEDICAL HISTORY: Family Psychiatric History: None reported or documented SOCIAL HISTORY Marital Status: Living Arrangements: Employment Status: Access to guns/weapons: Education: History of Abuse: Legal History: REVIEW OF SYSTEMS ROS cannot be reliably obtained from the patient due to her confusion and somnolence. REVIEW OF SYSTEMS Constitutional: Negative for weight loss ENT: Negative for stridor Respiratory: Negative for cough or hemoptysis All other systems reviewed and are negative MENTAL STATUS EXAMINATION General Appearance and Behavior: Age appropriate, poor/fair/good hygiene, wearing appropriate clothes, lying in bed, good/poor eye contact, cooperative/uncooperative polite/irritable with questioning. Cooperation: Participating/engaged, Withdrawn, Isolative, Threatening, Cooperative, Hostile and Guarded Psychomotor Behavior: Psychomotor agitation, psychomotor retardation, unremarkable and within normal limits Mood: Good, OK, Anxious, Depressed, Great, I don't know and so-so Affect and affective range: Angry, anxious, constricted, decreased range, depressed, dysthymic, euphoric, euthymic, irritable, labile and sad Thought Process: Fluent/Logical, Tangential, Circumstantial, Perseverative, Illogical, Goal-directed, Rambling, Pressured, Blocked, Fragmented and Loose associations Thought Content: Within reality, Poverty, Obsessions, Flight of ideas, Il logical, Grandiose, Phobia Paranoid, Ideas of reference, Hallucinations including auditory, visual, tactile and olfactory, Hopelessness, Helplessness, Phobia and Paranoid Speech: Normal volume, Regular rate and rhythm, pressured, loud volume, soft volume, stutter, paucity of speech, difficulty to understand, abnormalities in production of speech, confused and blocking Intellectual Functioning: Average Suicidal Ideation: Denies SI/Suicidal Homicidal Ideation: Denies HI/Homicidal Impulse Control: Impaired/Unimpaired Insight and Judgment: Normal insight and judgment, Limited insight and judgment, Impaired Memory: Normal, Short term memory intact, Short term memory impaired, shelter memory intact, shelter memory impaired, Prospective memory intact and Prospective memory impaired Attention: Normal, Distractible, Sustained attention intact, Sustained attention impaired, Divided attention intact and Divided attention impaired Orientation: Alert, oriented, anxious, confused, delirious and demented Diagnoses: Treatment Plan MEDICATIONS: Risks, benefits and alternatives of medications discussed with the patient, questions answered and consent obtained from patient. PSYCHOTHERAPY: Supportive psychotherapy provided MEDICAL: Per primary team DELIRIUM PRECAUTIONS: Please re-orient patient frequently, keep lights on during the day, and minimize benzodiazepines and opiates as these medications could worsen patient's confusion. 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 Do Not Recommend acute inpatient psychiatric hospitalization at this time. Case discussed with Dr. Dumas who agrees with current disposition LEGAL STATUS: 1013 FOLLOW-UP: Will follow Thank you for the consult. Please contact with any questions and/or concerns. Medications and Allergies Allergies Allergy/AdvReac Type Severity Reaction Status Date / Time No Known Allergies Allergy Verified 08/04/15 05:41 Home Medications Medication Instructions Recorded Confirmed Last Taken Type predniSONE [Deltasone] 20 mg PO DAILY #5 tablet 09/22/19 Unknown Rx Amoxicillin/Potassium Clav 1 each PO Q12H #20 tablet 10/01/19 Unknown Rx [Augmentin 875-125 Tablet] Benzonatate [Tessalon Perles] 100 mg PO Q8HR #30 capsule 10/01/19 Unknown Rx Prednisone [predniSONE 10 mg 10 mg PO .TAPER #21 tab.ds.pk 10/01/19 Unknown Rx (6-Day Pack, 21 Tabs)] predniSONE [Deltasone] 20 mg PO QDAY 5 Days #5 tab 12/23/19 Unknown Rx Mental Status Exam - Vital signs Last Vital Signs Temp 99.2 F 09/03/20 23:26 Pulse 46 L 09/04/20 08:30 Resp 15 09/04/20 08:30 BP 126/71 09/04/20 08:30 Pulse Ox 99 09/04/20 08:30 Results Result Diagrams: 09/03/20 23:30 09/03/20 23:30 Abnormal lab results 09/03/20 09/03/20 Range/Units 23:30 23:30 RBC 5.54 H (3.65-5.03) M/mm3 Hgb 15.8 H (11.8-15.2) gm/dl Hct 47.1 H (35.5-45.6) % [place] % (Auto) 10.0 H (0.0-7.3) % Eos % (Auto) 9.4 H (0.0-4.3) % Glucose 104 H (75-100) mg/dL All other labs normal.
[2020-09-04 10:25] VITALS: BP 156/96
== END 2020-09-04 10:10 | disposition home or self-care (01) ==
LOC: ED 22:40
DX: K92.1 Melena (principal); R51.9 Headache, unspecified; J45.909 Unspecified asthma, uncomplicated; Z79.2 Long term (current) use of antibiotics; Z79.899 Other long term (current) drug therapy
CPT/HCPCS: 36415; 70450; 74177; 80053; 81001; 83690; 85025; 99284; Q9967